=== PATIENT | male | born 1990 | race Caucasian/White ===

== ENCOUNTER 2019-05-02 10:12 | Emergency (ER) | payer SELFPAY ==
[2019-05-02] MEDS ORDERED: KETOROLAC 30 MG/ML VIAL IVP ONE (10:17)
[2019-05-02] MEDS ORDERED: ONDANSETRON HCL IV 4 MG/2 ML VIAL IVP ONE (10:17)
[2019-05-02] MEDS ORDERED: 0.9 % SODIUM CHLORIDE 1000ML 1,000 ML IV ONE (10:17)
--- NOTE | 2019-05-02 10:22 | Emergency Department Record ---
History of Present Illness - General Chief Complaint: Flu Like Symptoms Stated Complaint: CP Time Seen by Provider: 05/02/19 10:16 Source: Patient, Family Mode of Arrival: Ambulatory Limitations: No limitations - History of Present Illness Initial Comments: 29 yo male presents with three days of cough, fevers, congestion, and body aches. He developed chest pain with the cough today. The cough has become productive today. He is a smoker. No known underlying heart or lung disease. No leg pain or edema. He has poor appetite with little intake for three days. He did not have an influenza shot. No vomiting or diarrhea. No back or abdominal pain. MD Complaint: Cough, Fever, Nasal congestion, Other (Chest pain) -: Days(s) (3) Severity: Moderate Quality: Aching Consistency: Constant Improves With: Nothing Worsens With: Other (coughing) Context: Sick contacts Associated Symptoms: Chills, Cough, Fever, Myalgias, Nasal congestion Treatments Prior to Arrival: None - Related Data Home Medications Medication Instructions Recorded Confirmed Last Taken Bupropion HCl [Wellbutrin Xl] 300 mg PO DAILY 05/02/19 05/02/19 Unknown Trazodone HCl 50 mg PO QHS 05/02/19 05/02/19 Unknown Previous Rx's Medication Instructions Recorded Naproxen [Naprosyn] 500 mg PO Q12H #10 tab 05/02/19 Oseltamivir Phosphate [Tamiflu] 75 mg PO BID #10 capsule 05/02/19 Allergies Allergy/AdvReac Type Severity Reaction Status Date / Time Penicillins Allergy HIVES Verified 05/02/19 10:20 Review of Systems Constitutional: Reports: Fever, Malaise Eyes: Denies: Eye discharge, Eye pain, Photophobia, Vision change ENT: Reports: Congestion. Denies: Dental pain, Throat pain Respiratory: Reports: Cough. Denies: Dyspnea, Hemoptysis, Stridor, Wheezes Cardiovascular: Reports: Chest pain. Denies: Edema, Palpitations, Syncope Endocrine: Denies: Fatigue, Polydipsia, Polyuria Gastrointestinal: Reports: Nausea. Denies: Abdominal pain, Diarrhea, Vomiting Genitourinary: Denies: Dysuria, Frequency, Hematuria Musculoskeletal: Reports: Myalgia. Denies: Arthralgia, Back pain, Joint swelling, Neck pain Skin: Denies: Bruising, Change in color, Rash Neurological: Denies: Headache Psychiatric: Denies: Anxiety Hematological/Lymphatic: Denies: Easy bleeding, Easy bruising Physical Exam - General General Appearance: Alert, Oriented x3, Cooperative, No acute distress Limitations: No limitations - Head Head exam: Atraumatic, Normal inspection - Eye Eye exam: Normal appearance, PERRL. negative: Conjunctival injection, Scleral icterus - ENT ENT exam: Normal exam, Mucous membranes moist Ear exam: Normal external inspection Nasal Exam: Normal inspection Mouth exam: Normal external inspection - Neck Neck exam: Normal inspection, Full ROM. negative: Lymphadenopathy, Meningismus, Tenderness - Respiratory Respiratory exam: Chest wall tenderness, Decreased breath sounds. negative: Normal lung sounds bilaterally, Accessory muscle use, Prolonged expiratory, Rales, Respiratory distress, Rhonchi, Stridor, Wheezes - Cardiovascular Cardiovascular Exam: Regular rate, Normal rhythm, Normal heart sounds Peripheral Pulses: 2+: Radial (R), Radial (L) - GI/Abdominal GI/Abdominal exam: Soft. negative: Tenderness - Rectal Rectal exam: Deferred - exam: Deferred - Extremities Extremities exam: Normal inspection. negative: Pedal edema, Tenderness - Back Back exam: Denies: CVA tenderness (R), CVA tenderness (L) - Neurological Neurological exam: Alert, Oriented X3 - Psychiatric Psychiatric exam: Normal affect, Normal mood - Skin Skin exam: Dry, Intact, Normal color, Warm Course - Reevaluation(s) Reevaluation #1: No fever or hypoxia in ED 05/02/19 10:21 EKG #1: 10:24 Rate: 92 Rhythm: sinus [place]: normal Intervals: normal ST segments: normal Prior: none 05/02/19 10:45 The CBC and BMP are normal 05/02/19 11:28 CXR is negative 05/02/19 11:29 We discussed the results of the tests and questions were answered. He is aware he is contagious. We discussed what to expect with influenza over the next week The patient is doing well and is comfortable with DC. We discussed at length reasons to immediately return to the ED as well as close follow up. Medical Decision Making - Lab Data Result diagrams: 05/02/19 10:20 05/02/19 10:20 Disposition Disposition: Discharge Clinical Impression: Chest wall pain, Bronchitis, Influenza A Disposition: Home, Self-Care Condition: (1) Good Instructions: Influenza (ED) Additional Instructions: You have influenza A (The Flu) Return to the ER for a recheck immediately if worse, any new concerns or questions Take the prescriptions provided as directed You are contagious so wash your hands Follow up the test results with your family doctor Prescriptions: Naproxen [Naprosyn] 500 mg PO Q12H #10 tab. Oseltamivir Phosphate [Tamiflu] 75 mg PO BID #10 capsule Forms: Patient Portal Access Time of Disposition: 11:28 Quality - Quality Measures Quality Measures: N/A - Blood Pressure Screening Does Patient Have Any of the Following: No Blood Pressure Classification: Pre-Hypertensive BP Reading Systolic Measurement: 135 Diastolic Measurement: 88 Screening for High Blood Pressure: < Pre-Hypertensive BP, F/U Documented > [[id number]] Pre-Hypertensive Follow-up Interventions: Referral to alternative/primary care provider.
[2019-05-02 10:34] LABS: ABSOLUTE NEUTROPHIL COUNT 5.48; BASO % 0.1 % (0-6); GRAN % 76.5 % (47-80); HEMATOCRIT 45.4 % (42.0-52.0); HEMOGLOBIN 15.5 gm/dl (14.0-18.0); MEAN CELL VOLUME 83.5 fl (81-97); MEAN CORPUSCULAR HEMOGLOBIN 28.5 pg (27-33); MEAN CORPUSCULAR HGB CONC 34.1 g/dl (32-36); MEAN PLATELET VOLUME 11.1 fl (7.4-10.4); MONO % 11.4 % (0-9); PLATELET COUNT 198 K/uL (130-400); RED BLOOD COUNT 5.44 M/uL (4.40-5.70); RED CELL DISTRIBUTION WIDTH 12.2 % (11.5-14.5); WHITE BLOOD COUNT W/O DIFF 7.2 K/uL (4.2-12.2)
[2019-05-02 10:41] LABS: BLOOD UREA NITROGEN 14 mg/dL (6-20); CREATININE 1.2 mg/dL (0.7-1.2); EST GLOMERULAR FILTRATION RATE > 60 mL/min
[2019-05-02 10:44] LABS: GLUCOSE,RANDOM 115 mg/dL (74-109)
[2019-05-02 10:47] LABS: INFLUENZA A POSITIVE (NEGATIVE); INFLUENZA B NEGATIVE (NEGATIVE)
--- NOTE | 2019-05-02 11:18 | RADIOLOGY REPORT ---
EXAMINATION: Two View Chest Radiographs EXAM DATE: 05/02/2019 10:48 AM TECHNIQUE: Frontal and lateral views INDICATION: cough, chest pain COMPARISON: None ENCOUNTER: Not applicable FINDINGS: The heart, mediastinum, and pulmonary vasculature are normal. No lung consolidation or pleural effu sions are present. IMPRESSION: No acute radiographic findings. Dictated by: Ami Hurt MD on 05/02/2019 11:15 AM. .
== END 2019-05-02 11:40 | disposition home or self-care (01) ==
LOC: ER 10:12
DX: J10.1 Influenza due to other identified influenza virus with other respiratory manifestations (principal)
CPT/HCPCS: 71046; 80048; 85025; 87400; 93005; 93010; 96374; 96375; 99284; J1885; J2405; J7030